=== PATIENT | female | born 1990 | race Two or more races ===

== ENCOUNTER 2018-07-07 16:46 | Emergency (ER) | payer MEDICAID ==
[~2018-07-07] VITALS: Ht 162.6 cm; Wt 54.4 kg
[2018-07-07 18:14] LABS: Urine Bacteria NONE SEEN /hpf (None Seen); Urine Blood Negative /uL (Negative); Urine Specific Gravity 1.015 (1.001-1.035); Urine WBC 21 /hpf (0 - 5)
[2018-07-07 18:33] VITALS: BP 117/69
== END 2018-07-07 20:07 | disposition home or self-care (01) ==
LOC: ER 16:53
DX: M41.9 Scoliosis, unspecified (principal); N39.0 Urinary tract infection, site not specified
CPT/HCPCS: 72070; 72100; 81001